=== PATIENT | female | born 1925 | race Caucasian/White ===

== ENCOUNTER → 2016-07-12 | Outpatient (CLI) | payer OTHER, BC | LOC: BHFA 10:30 | PROVIDERS: ATTEND Internal Medicine Cardiovascular Disease | DX: I25.10 Atherosclerotic heart disease of native coronary artery without angina pectoris (principal); I10 Essential (primary) hypertension; G45.9 Transient cerebral ischemic attack, unspecified; E78.5 Hyperlipidemia, unspecified; Z95.5 Presence of coronary angioplasty implant and graft ==

== ENCOUNTER → 2016-07-25 | Outpatient (CLI) | payer OTHER, BC | LOC: BHFA 09:15 | PROVIDERS: ATTEND Internal Medicine | DX: G45.9 Transient cerebral ischemic attack, unspecified (principal); I10 Essential (primary) hypertension ==

== ENCOUNTER 2016-08-25 08:14 | Day surgery (SDC) | payer OTHER, BC ==
[2016-08-25] MEDS ORDERED: LIDOCAINE 1% 30 ML SDV SC ONE (09:00)
--- NOTE | 2016-08-25 11:15 | CPIP ---
[f rep st] INVASIVE CARDIAC PROCEDURE DATE OF PROCEDURE: 08/25/2016 INDICATIONS: The patient is 89 years old. She has a history of cryptogenic stroke. Previous monit oring has failed to indicate any arrhythmia. She is referred for evaluation of possible atrial fibr illation. PROCEDURE: Implantation of Medtronic LINQ. TECHNIQUE: Following informed consent, in the fasting state the patient was brought to the CVC. Th e left chest was prepped and draped in usual sterile fashion. The 4th intercostal space was identif ied. Lidocaine was infiltrated. A less than 1 cm incision was then made. The Medtronic LINQ was t hen "injected" underneath the skin. Electrocautery was used for hemostasis, as there was a small liu perficial arterial bleed. The wound was then closed with 2 yesenia and dressed with 4 x 4 gauze and Tegaderm. COMPLICATIONS: None. DISPOSITION: The patient will be discharged home today. /[id number]/MODL
== END 2016-08-25 11:44 | disposition home or self-care (01) ==
LOC: FCATH 08:14
PROVIDERS: ATTEND Internal Medicine Cardiovascular Disease
PROC: 0JH602Z Insertion of Monitoring Device into Chest Subcutaneous Tissue and Fascia, Open Approach (ICD-10-PCS; principal; 2016-08-25)
DX: I48.91 Unspecified atrial fibrillation (principal); I10 Essential (primary) hypertension; E78.5 Hyperlipidemia, unspecified; I73.9 Peripheral vascular disease, unspecified; I25.2 Old myocardial infarction; Z86.73 Personal history of transient ischemic attack (TIA), and cerebral infarction without residual deficits; Z85.828 Personal history of other malignant neoplasm of skin; Z88.0 Allergy status to penicillin; Z88.2 Allergy status to sulfonamides
CPT/HCPCS: C1764

== ENCOUNTER 2016-09-29 16:07 | Inpatient (IN) | payer OTHER, BC ==
--- NOTE | 2016-09-29 16:19 | EDPHY ---
H & P Stated Complaint: Referred by Dr. Monge's office for dehyrdation and r/o lung infection Time Seen by Provider: 09/29/16 16:18 - Personal History Current Tetanus Diphtheria and Acellular Pertussis (TDAP): Yes Tetanus Vaccine Date: Within 10 years. - Social History Smoking Status: Former smoker Constitutional: Initial Vital Signs Temperature (C) 36.6 C 09/29/16 16:08 Heart Rate 68 09/29/16 16:08 Respiratory Rate 14 09/29/16 16:08 Blood Pressure 128/60 H 09/29/16 16:08 O2 Sat (%) 95 09/29/16 16:08 O2 Delivery Mode Room Air O2 (L/minute) 2 Allergies/Adverse Reactions: ciprofloxacin [From Cipro] Allergy (Unknown, Verified 03/17/13 12:41) ciprofloxacin HCl [From Cipro] Allergy (Unknown, Verified 03/17/13 12:41) Penicillins Allergy (Unknown, Verified 03/17/13 12:41) Sulfa (Sulfonamide Antibiotics) Allergy (Unknown, Verified 03/17/13 17:07) Home Medications: Medication Instructions Recorded Aspirin 81mg (OTC) 81 mg PO DAILY 05/01/13 Citalopram [celeXA 20 MG (RX)] 10 mg PO DAILY 05/01/13 LORazepam [Ativan 0.5 mg (RX)] 0.5 mg PO HS 05/01/13 Levothyroxine [Synthroid 88 mcg 75 mcg PO DAILY 05/01/13 (RX)] Metoprolol Tartrate [Lopressor 25 25 mg PO BID 05/01/13 mg (RX)] Multivitamins [Multivitamin (OTC)] 1 tab PO BID 05/01/13 Ubidecarenone [Coenzyme Q10] 100 mg PO BID 05/01/13 Advil 400 mg PO BID 08/25/16 Glucosamine Chondroitin Cap 1 PO DAILY 08/25/16 Prilosec 20 mg 20 mg PO DAILY 08/25/16 Rosuvastatin Calcium [Crestor 40mg 40 mg PO DAILY 08/25/16 (*)] Vitamin D3 1,000 units PO DAILY 08/25/16 Medical Decision Making - Diagnostics Imaging: Imaging Impressions Chest X-Ray 09/29/16 16:20 Impression: Right lower lobe infiltrate suspicious for pneumonia.. ED Course/Re-evaluation: CHIEF COMPLAINT: Cough, weakness HISTORY OF PRESENT ILLNESS: The patient is an anticoagulated 89 y/o female, with a significant cardiac history, arriving with her family at the referral of her PCP complaining of worsening cough and weakness over the last week. She had a chest x-ray on Sunday, 3 days ago, that showed pneumonia and she was started on an antibiotics. Since then, she has not improved. Her daughter states she's also had two falls in the last week, once on each side and has complained of right and left hip. She has intermittent "shooting" pain in her right hip. She additionally has right rib pain when coughing. REVIEW OF SYSTEMS: A 10 point review of systems was performed and is negative with the exception of the elements mentioned in the history of present illness. PHYSICAL EXAM: HR, BP, O2 Sat, RR. Temp noted General Appearance: Alert, well hydrated, appropriate, and weak-appearing. Head: Atraumatic without scalp tenderness or obvious injury Eyes: Pupils equal, round, reactive to light and accommodation, EOMI, no trauma , no injection. Nose: Atraumatic, no rhinorrhea, clear. Neck: Supple, nontender, no lymphadenopathy. Respiratory: No retractions, no distress, no wheezes, and no accessory muscle use. Lungs have rhonchi on the right. Cardiovascular: Regular rate and rhythm, no murmurs, rubs, or gallops. Good capillary refill all extremities. Gastrointestinal: Abdomen is soft, nontender, non-distended, no masses, no rebound, no guarding, no peritoneal signs. Musculoskeletal: Normal active ROM of all extremities, atraumatic. Neurological: Alert, appropriate, and interactive. Neuro exam nonfocal. Skin: No rashes, good turgor, no nodules on palpation. Past medical history: CAD, MIs, hypertension, dyslipidemia, falls, skin cancer, CVA, GERD, IBS Past surgical history: multiple cardiac stents, total right hip arthroplasty, hysterectomy, right wrist repair, mastectomy, adenoidectomy, cataract surgery Family history: Noncontributory Social history: Family at bedside. Former tobacco use. Leacher: Dr. Blair Prior medical records reviewed including 05/01/13 for cardiac catheterization. DIAGNOSTICS/PROCEDURES/CRITICAL CARE TIME: Chest x-ray, Pelvis CT. I viewed the images myself on the PACS system. DIFFERENTIAL DIAGNOSIS: The differential diagnosis for the patient's cough and weakness included but was not limited to pneumonia, urinary tract infection , viral syndrome, meningitis, and sepsis. MEDICAL DECISION MAKING: This is a 89 y/o female who presents with a 1-week history of worsening cough and weakness. She has a significant medical history including CAD, hypertension , MIs, and CVA. She has rhonchi on lung exam and is generally weak. She additionally complains of intermittent right hip pain with movement. She is afebrile and her vitals are WNL. A chest x-ray 3 days ago was positive for pneumonia and she has been on doxycycline for a few days without improvement. Plan for IV, sepsis labs, UA, chest x-ray, pelvis CT, and IVantibiotic treatment. 750mg IV Levaquin administered. Hyponatremic at 124, no WBC, normal lactate. Repeat chest x-ray shows right lower lobe pneumonia. She has not improved on PO antibiotics as an outpatient and has had two falls due to weakness; she will require admission. 1730: Spoke with hospitalist. Dr. Marcus accepts admission. - Data Points Laboratory Results: Laboratory Results 09/29/16 16:30 09/29/16 16:30 09/29/16 09/29/16 09/29/16 16:30 16:30 16:30 WBC 7.69 10^3/uL 10^3/uL (3.80-9.50) RBC 4.45 10^6/uL 10^6/uL (4.18-5.33) Hgb 13.8 g/dL g/dL (12.6-16.3) Hct 38.4 % % (38.0-47.0) MCV 86.3 fL fL (81.5-99.8) MCH 31.0 pg pg (27.9-34.1) MCHC 35.9 g/dL g/dL (32.4-36.7) RDW 12.6 % % (11.5-15.2) Plt Count 271 10^3/uL 10^3/uL (150-400) MPV 8.7 fL fL (8.7-11.7) Neut % (Auto) 75.2 % H % (39.3-74.2) Lymph % (Auto) 11.2 % L % (15.0-45.0) Garza % (Auto) 11.4 % % (4.5-13.0) Eos % (Auto) 0.5 % L % (0.6-7.6) Baso % (Auto) 0.5 % % (0.3-1.7) Nucleat RBC Rel Count 0.0 % % (0.0-0.2) Absolute Neuts (auto) 5.78 10^3/uL 10^3/uL (1.70-6.50) Absolute Lymphs (auto) 0.86 10^3/uL L 10^3/uL (1.00-3.00) Absolute Monos (auto) 0.88 10^3/uL H 10^3/uL (0.30-0.80) Absolute Eos (auto) 0.04 10^3/uL 10^3/uL (0.03-0.40) Absolute Basos (auto) 0.04 10^3/uL 10^3/uL (0.02-0.10) Absolute Nucleated RBC 0.00 10^3/uL 10^3/uL (0-0.01) Immature Gran % 1.2 % H % (0.0-1.1) Immature Gran # 0.09 10^3/uL 10^3/uL (0.00-0.10) PT 14.8 SEC SEC (12.0-15.0) INR 1.16 (0.83-1.16) APTT 28.6 SEC SEC (23.0-38.0) VBG Lactic Acid Sodium 124 mEq/L L mEq/L (134-144) Potassium 3.0 mEq/L L mEq/L (3.5-5.2) Chloride 88 mEq/L L mEq/L (97-110) Carbon Dioxide 26 mEq/l mEq/l (22-31) Anion Gap 10 mEq/L mEq/L (8-16) BUN 20 mg/dL mg/dL (7-23) Creatinine 1.0 mg/dL mg/dL (0.6-1.0) Estimated GFR 52 Glucose 132 mg/dL H mg/dL (70-100) Calcium 8.8 mg/dL mg/dL (8.5-10.4) Total Bilirubin 1.3 mg/dL mg/dL (0.1-1.4) 09/29/16 16:30 WBC RBC Hgb Hct MCV MCH MCHC RDW Plt Count MPV Neut % (Auto) Lymph % (Auto) Garza % (Auto) Eos % (Auto) Baso % (Auto) Nucleat RBC Rel Count Absolute Neuts (auto) Absolute Lymphs (auto) Absolute Monos (auto) Absolute Eos (auto) Absolute Basos (auto) Absolute Nucleated RBC Immature Gran % Immature Gran # PT INR APTT VBG Lactic Acid 1.4 mmol/L mmol/L (0.7-2.1) Sodium Potassium Chloride Carbon Dioxide Anion Gap BUN Creatinine Estimated GFR Glucose Calcium Total Bilirubin Departure - Departure Disposition: [facility] Inpatient Acute Clinical Impression: Weakness, Hyponatremia Pneumonia Qualifiers: Pneumonia type: due to unspecified organism Laterality: right Lung location: lower lobe of lung Qualified Code(s): J18.1 - Lobar pneumonia, unspecified organism Condition: Fair Report Scribed for: Shawn Alicea Report Scribed by: Amy Donohue Date of Report: 09/29/16 Time of Report: 16:55
[2016-09-29 16:53] LABS: % IMMATURE GRANULYOCYTES 1.2 % (0.0-1.1); ABSOLUTE IMMATURE GRANULOCYTES 0.09 10^3/uL (0.00-0.10); ADD DIFF? NO; ADD MORPH? NO; ADD SCAN? NO; ATYPICAL LYMPHOCYTE FLAG 30 (0-99); FRAGMENT RBC FLAG 0 (0-99); HEMATOCRIT 38.4 % (38.0-47.0); HEMOGLOBIN 13.8 g/dL (12.6-16.3); LEFT SHIFT FLG 10 (0-99); LIPEMIA HEMOLYSIS FLAG 90 (0-99); MEAN CELL HEMOGLOBIN CONCENTR. 35.9 g/dL (32.4-36.7); MEAN CELL VOLUME 86.3 fL (81.5-99.8); MEAN PLATELET VOLUME 8.7 fL (8.7-11.7); PLATELET CLUMPS FLAG 10 (0-99); PLATELET COUNT 271 10^3/uL (150-400); RED BLOOD CELL COUNT 4.45 10^6/uL (4.18-5.33); RED CELL DISTRIBUTION WIDTH 12.6 % (11.5-15.2)
[2016-09-29 17:06] LABS: ANION GAP 10 mEq/L (8-16); BILIRUBIN,TOTAL 1.3 mg/dL (0.1-1.4); CALCIUM 8.8 mg/dL (8.5-10.4); CARBON DIOXIDE 26 mEq/l (22-31); CHLORIDE 88 mEq/L (97-110); GLOMERULAR FILTRATION RATE 52; GLUCOSE 132 mg/dL (70-100); SODIUM 124 mEq/L (134-144)
[2016-09-29 17:21] LABS: INR 1.16 (0.83-1.16); PROTIME(PATIENT) 14.8 SEC (12.0-15.0)
[2016-09-29 17:22] LABS: APTT 28.6 SEC (23.0-38.0)
[2016-09-29 18:25] LABS: COLOR PALE YELLOW; LEUKOCYTE ESTERASE,URINE NEGATIVE (NEGATIVE); NITRITE,URINE NEGATIVE (NEGATIVE)
[2016-09-29] MEDS ORDERED: ONDANSETRON DISINTEGRATING 4 MG TAB PO PRN ×2 (19:18→19:26)
[2016-09-29] MEDS ORDERED: oxyCODONE IR 5 MG TAB PO PRN (19:18)
[2016-09-29] MEDS ORDERED: ACETAMINOPHEN 325 MG TAB PO PRN (19:18)
[2016-09-29] MEDS ORDERED: ALBUTEROL 3 ML DEYVIAL IH PRN (19:18)
[2016-09-29] MEDS ORDERED: ONDANSETRON 4 MG/2 ML VIAL IVP PRN (19:18)
[2016-09-29] MEDS ORDERED: NS 1,000 ML IV SCH (19:30)
[2016-09-29] MEDS: LORazepam 0.5 MG TAB PO SCH (20:32)
[2016-09-29] MEDS: METOPROLOL TARTRATE 25 MG TAB PO SCH (20:33)
[2016-09-29] MEDS: IBUPROFEN 200 MG TAB PO SCH (20:36)
[2016-09-29] MEDS: IPRATROPIUM/ALBUTEROL 3 ML DEYVIAL IH SCH (21:43)
[2016-09-29] MEDS: AZITHROMYCIN IV 500 MG in D5W 250 ML IV SCH (21:44)
--- NOTE | 2016-09-29 22:59 | GHP ---
[f rep st] HISTORY AND PHYSICAL DATE OF ADMISSION: 09/29/2016 CHIEF COMPLAINT: Weakness and "feeling awful." HISTORY OF PRESENT ILLNESS: This is an 89-year-old female with past medical history of coronary art abel disease and TIAs who presents with complaints of feeling very weak and sick for several days. T he patient was recently diagnosed with pneumonia about 2 days ago and started on oral doxycycline. She notes that despite that she has continued to worsen, just feeling very weak, hardly able even to walk. She notes she has a very poor appetite and has not been eating much. She does not believe s he has had fevers or chills. She does have a cough that has been mostly dry. She has had a couple falls at home recently and has had significant bilateral back pain since her last fall. PAST MEDICAL HISTORY: 1. Coronary artery disease, status post [facility] in the past, with cardiac stents. 2. TIA. 3. Hyperlipidemia. 4. Hypothyroidism. 5. History of melanoma. 6. Hypertension. 7. History of CVA. 8. GERD. 9. IBS. PAST SURGICAL HISTORY: 1. Hysterectomy. 2. Total hip. 3. Cardiac stents. 4. Mastectomy. 5. Adenoidectomy. 6. Cataract surgery. FAMILY HISTORY: Parents are . SOCIAL HISTORY: The patient currently lives at [facility]. She drinks occasi onally. She is a nonsmoker. She has children who live near by. REVIEW OF SYSTEMS: 10-point review of systems was obtained, negative except as per HPI. MEDICATIONS: At home include: 1. Zofran. 2. Crestor. 3. Aspirin. 4. Ibuprofen. 5. Citalopram. 6. Glucosamine and chondroitin. 7. Doxycycline. 8. Digoxin. 9. Omeprazole. 10. Multivitamin. 11. Cholecalciferol. 12. Polyethylene glycol. 13. Metoprolol. 14. Ativan. 15. Synthroid. ALLERGIES: Include ciprofloxacin and penicillin. PHYSICAL EXAMINATION: VITAL SIGNS: BP 138/48, heart rate 65, respiratory rate 16, O2 sats 96% on r oom air. Temperature is 37. GENERAL APPEARANCE: This is an elderly, female. She is yovani ke and alert. She is in no acute distress. EYES: Anicteric. HENT: Oropharynx clear. CARDIOVASC ULAR: Regular rate and rhythm. No MRG. PULMONARY: Right basilar crackles. Normal work of breathing. ABDOMEN: Soft, nontender, nondistend ed. EXTREMITIES: No clubbing, cyanosis, or edema. SKIN: Warm, dry. Well perfused. NEURO/PSYCH: Oriented, appropriate, pleasant. CLINICAL DATA: Labs reviewed. Significant for white blood cell count of 7.6, hematocrit 38.4, plat elets of 271. Sodium is 124, creatinine 1.0, glucose of 132. Urinalysis shows 2+ blood, 3-5 red blo od cells, otherwise unremarkable. Chest x-ray reviewed and interpreted independently by myself shows right lower lobe infiltrate. Pelvic CT shows mildly displaced sacral trauma without fracture. ASSESSMENT/PLAN: This is an 89-year-old female with past history of coronary artery disease present ing with right lower lobe pneumonia that is failing to improve with outpatient therapy. 1. Right lower lobe pneumonia. She has been on doxycycline for 2 days prior to admission without s ignificant improvement. She does have persistent evidence of pneumonia on chest x-ray. She has bee n started on ceftriaxone and azithromycin in-house. She is nonseptic appearing. She is not hypoxic . 2. Hyponatremia. The patient does have a history of syndrome of inappropriate antidiuretic hormone but suspect this is more likely related to hypovolemic hyponatremia in the setting of poor p.o. inta ke for several days prior to admission. She has been given IV fluids and we will recheck a BMP. Wi ll also check urine sodium and osmoles. 3. Back pain, status post 2 falls at home. She does have a pelvic CT showing a displaced sacrum wi th subluxation of S5 compared to S4 without any acute fracture. She also has disk disease at L5 thr ough S1. She has been able to ambulate despite her pain. We will have PT/OT evaluate and work up f urther as indicated. 4. Coronary artery disease, without any evidence of acute coronary syndrome at this point. We will continue to monitor. 5. Other chronic medical problems including history of cerebrovascular accident, hyperlipidemia, hy pothyroidism. Will continue outpatient management. 6. Disposition. Inpatient status. Patient has multiple active comorbid conditions requiring inpat ient stay and greater than 48 hours stay here in the hospital. 7. Code status is do not resuscitate. 8. The patient is new to my care. Old records reviewed and summarized as per HPI and past medical history. Care plan reviewed with ER physician, including plans for treatment of pneumonia. /[id number]/MODL
[2016-09-29 23:57] LABS: ANION GAP 9 mEq/L (8-16); CALCIUM 8.4 mg/dL (8.5-10.4); CARBON DIOXIDE 24 mEq/l (22-31); CHLORIDE 93 mEq/L (97-110); CREATININE 0.9 mg/dL (0.6-1.0); GLOMERULAR FILTRATION RATE 59; GLUCOSE 195 mg/dL (70-100); SODIUM 126 mEq/L (134-144)
[2016-09-29 23:59] LABS: POTASSIUM 2.7 mEq/L (3.5-5.2)
[2016-09-30] MEDS ORDERED: POTASSIUM CL 20 MEQ/15 ML UDCUP PO ONE ×2 (00:10→00:18)
[2016-09-30] MEDS ORDERED: PROTOCOL MAGNESIUM 1 DOSE IV PRN (00:15)
[2016-09-30] MEDS ORDERED: PROTOCOL POTASSIUM 1 DOSE MISC PRN (00:15)
[2016-09-30] MEDS ORDERED: POTASSIUM Cl (KCl) 100 ML IV SCH (00:30)
--- NOTE | 2016-09-30 01:03 | CPEKG ---
Heart Rate: 67 RR Interval: 896 P-R Interval: 176 QRSD Interval: 88 QT Interval: 440 QTC Interval: 465 P [place]: 54 QRS [place]: 24 T Wave [place]: 34 EKG Severity - NORMAL ECG - EKG Impression: SINUS RHYTHM Electronically Signed By: Marco Nagy 30-Sep-2016 16:59:18
[2016-09-30] MEDS: IPRATROPIUM/ALBUTEROL 3 ML DEYVIAL IH SCH ×4 (05:24→21:12)
[2016-09-30 05:46] LABS: % IMMATURE GRANULYOCYTES 1.3 % (0.0-1.1); ABSOLUTE IMMATURE GRANULOCYTES 0.08 10^3/uL (0.00-0.10); ADD DIFF? NO; ADD MORPH? NO; ADD SCAN? NO; ATYPICAL LYMPHOCYTE FLAG 0 (0-99); FRAGMENT RBC FLAG 0 (0-99); HEMATOCRIT 35.9 % (38.0-47.0); HEMOGLOBIN 13.1 g/dL (12.6-16.3); LEFT SHIFT FLG 10 (0-99); LIPEMIA HEMOLYSIS FLAG 90 (0-99); MEAN CELL HEMOGLOBIN 31.9 pg (27.9-34.1); MEAN CELL HEMOGLOBIN CONCENTR. 36.5 g/dL (32.4-36.7); MEAN CELL VOLUME 87.3 fL (81.5-99.8); MEAN PLATELET VOLUME 8.7 fL (8.7-11.7); PLATELET CLUMPS FLAG 0 (0-99); PLATELET COUNT 241 10^3/uL (150-400); RED BLOOD CELL COUNT 4.11 10^6/uL (4.18-5.33); RED CELL DISTRIBUTION WIDTH 12.6 % (11.5-15.2)
[2016-09-30] MEDS: LEVOTHYROXINE 75 MCG TAB PO SCH (05:58)
[2016-09-30 06:01] LABS: ANION GAP 7 mEq/L (8-16); CALCIUM 8.6 mg/dL (8.5-10.4); CARBON DIOXIDE 26 mEq/l (22-31); CHLORIDE 98 mEq/L (97-110); CREATININE 0.9 mg/dL (0.6-1.0); GLOMERULAR FILTRATION RATE 59; GLUCOSE 100 mg/dL (70-100); MAGNESIUM 2.2 mg/dL (1.6-2.3); SODIUM 131 mEq/L (134-144)
[2016-09-30] MEDS: AZITHROMYCIN IV 500 MG in D5W 250 ML IV SCH (10:02)
[2016-09-30] MEDS: IBUPROFEN 200 MG TAB PO SCH ×2 (10:03→18:31)
[2016-09-30] MEDS: ASPIRIN EC 81 MG TAB PO SCH (10:03)
[2016-09-30] MEDS: GLUCOSAMINE/CHONDROITIN CAP PO SCH (10:03)
[2016-09-30] MEDS: PANTOPRAZOLE SODIUM 40 MG TAB PO SCH (10:03)
[2016-09-30] MEDS: DIGOXIN 125 MCG TAB PO SCH (10:03)
[2016-09-30] MEDS: CHOLECALCIFEROL VIT D3 1,000 UNITS TAB PO SCH (10:03)
[2016-09-30] MEDS: ROSUVASTATIN CALCIUM 40 MG TAB PO SCH (10:03)
[2016-09-30] MEDS: ENOXAPARIN 30 MG/0.3 ML SYR SC SCH (10:04)
[2016-09-30] MEDS: MULTIVITAMINS 1 EACH TAB PO SCH (10:04)
[2016-09-30] MEDS: METOPROLOL TARTRATE 25 MG TAB PO SCH ×2 (10:04→18:32)
[2016-09-30] MEDS: CITALOPRAM 20 MG TAB PO SCH (10:04)
[2016-09-30] MEDS: POLYETHYLENE GLYCOL 3350 17 GM PKT PO SCH (10:11)
--- NOTE | 2016-09-30 15:56 | HOSPPROG ---
Hospitalist Progress Note Assessment/Plan: 89-year-old female with known history of coronary artery disease and prior TIAs admitted with a right lower lobe pneumonia. Patient is new to me today. -RLL pneumonia currently on Rocephin and azithromycin and improving. She is also on bronchodilator therapy. She remains quite weak during my exam but that could be expected given that she has been sick for at least 3-5 days. -hyponatremia secondary to free water ingestion. Possible SIADH syndrome though more likely just free water. Will watch her sodium. Her diet will be liberal. -back pain. Findings of the CT scanner well noted. Will treat pain as needed PT will be contacted -code status: DNR -DVT: Of Lovenox -disposition: Patient should be inpatient status due to numerous medical problems and severity of the pneumonia. Subjective: Reports she feels weak and tired but slightly improved since admission. She was asleep at the time of my initial evaluation. Denied abdominal pain chest pain. She said her shortness of breath was improved. No hemoptysis Objective: Vital Signs Temp Pulse Resp BP Pulse Ox 36.5 C 66 14 104/52 L 97 09/30/16 04:00 09/30/16 09:43 09/30/16 09:43 09/30/16 04:00 09/30/16 09:43 Laboratory Results 09/30/16 05:27 09/30/16 05:27 09/29/16 09/30/16 10/01/16 05:59 05:59 05:59 Intake Total 250 Output Total 800 Balance -550 PT 14.8 SEC (12.0-15.0) 09/29/16 16:30 INR 1.16 (0.83-1.16) 09/29/16 16:30 - Time Spent With Patient Time Spent with Patient: greater than 35 minutes Time Spent with Patient: Greater than 35 minutes spent on this patients care, greater than 50% of time spent counseling, educating, and coordinating care regarding the above mentioned plan. - Pending Discharge Pending Discharge Within 24 Hours: No Pending Discharge Within 48 Hours: No - Physical Exam Constitutional: no apparent distress, chronically ill appearing Eyes: PERRL Ears, Nose, Mouth, Throat: moist mucous membranes, hard of hearing Cardiovascular: regular rate and rhythym, no murmur, rub, or gallop Respiratory: no respiratory distress, clear to auscultation, reduced air movement Gastrointestinal: normoactive bowel sounds, soft, non-tender abdomen, no palpable masses Musculoskeletal: generalized weakness Neurologic: AAOx3, CN II-XII Intact Psychiatric: interacting appropriately ICD10 Worksheet Patient Problems: Problems Problem Status Onset Fracture of neck of femur Active NSTEMI (non-ST elevated myocardial infarction) Acute Pneumonia Acute Weakness Acute Hyponatremia Acute
[2016-09-30 18:08] LABS: POTASSIUM 3.6 mEq/L (3.5-5.2)
[2016-09-30] MEDS: LORazepam 0.5 MG TAB PO SCH (21:23)
[2016-09-30] MEDS ORDERED: POTASSIUM CL 20 MEQ TAB PO ONE (21:25)
[2016-10-01] MEDS: LEVOTHYROXINE 75 MCG TAB PO SCH (05:05)
[2016-10-01] MEDS: IPRATROPIUM/ALBUTEROL 3 ML DEYVIAL IH SCH ×4 (05:23→22:11)
[2016-10-01 05:47] LABS: ALANINE AMINOTRANSFERASE 43 IU/L (9-52); ALBUMIN 2.8 g/dL (3.5-5.0); ALKALINE PHOSPHATASE 61 IU/L (38-126); ANION GAP 7 mEq/L (8-16); ASPARTATE AMINOTRANSFERASE 37 IU/L (14-46); BILIRUBIN,TOTAL 0.9 mg/dL (0.1-1.4); CALCIUM 8.6 mg/dL (8.5-10.4); CARBON DIOXIDE 25 mEq/l (22-31); CHLORIDE 99 mEq/L (97-110); CREATININE 0.9 mg/dL (0.6-1.0); GLOMERULAR FILTRATION RATE 59; GLUCOSE 107 mg/dL (70-100); MAGNESIUM 2.1 mg/dL (1.6-2.3); POTASSIUM 3.8 mEq/L (3.5-5.2); SODIUM 131 mEq/L (134-144); TOTAL PROTEIN 5.5 g/dL (6.3-8.2)
[2016-10-01] MEDS: AZITHROMYCIN IV 500 MG in D5W 250 ML IV SCH (09:01)
[2016-10-01] MEDS: POLYETHYLENE GLYCOL 3350 17 GM PKT PO SCH (09:01)
[2016-10-01] MEDS: ENOXAPARIN 30 MG/0.3 ML SYR SC SCH (09:01)
[2016-10-01] MEDS: METOPROLOL TARTRATE 25 MG TAB PO SCH ×2 (09:02→19:56)
[2016-10-01] MEDS: CHOLECALCIFEROL VIT D3 1,000 UNITS TAB PO SCH (09:02)
[2016-10-01] MEDS: CITALOPRAM 20 MG TAB PO SCH (09:02)
[2016-10-01] MEDS: ASPIRIN EC 81 MG TAB PO SCH (09:02)
[2016-10-01] MEDS: IBUPROFEN 200 MG TAB PO SCH ×2 (09:02→19:40)
[2016-10-01] MEDS: DIGOXIN 125 MCG TAB PO SCH (09:02)
[2016-10-01] MEDS: ROSUVASTATIN CALCIUM 40 MG TAB PO SCH (09:02)
[2016-10-01] MEDS: PANTOPRAZOLE SODIUM 40 MG TAB PO SCH (09:02)
[2016-10-01] MEDS: GLUCOSAMINE/CHONDROITIN CAP PO SCH (09:02)
[2016-10-01] MEDS: MULTIVITAMINS 1 EACH TAB PO SCH (09:03)
[2016-10-01] MEDS ORDERED: POTASSIUM CL 10 MEQ TAB PO ONE ×2 (09:29→21:16)
--- NOTE | 2016-10-01 09:32 | HOSPPROG ---
Hospitalist Progress Note Assessment/Plan: 89-year-old female with known history of coronary artery disease and prior TIAs admitted with a right lower lobe pneumonia. Today feeling slightly improved with better appetite. Moving her bowels without diarrhea -RLL pneumonia currently on Rocephin and azithromycin and improving. She is also on bronchodilator therapy. She remains quite weak during my exam but that could be expected given that she has been sick for at least 3-5 days. -hyponatremia secondary to free water ingestion. Possible SIADH syndrome though more likely just free water. Will watch her sodium. Her diet will be liberal. -back pain. Findings of the CT scanner well noted. Will treat pain as needed PT will be contacted -code status: DNR -DVT: Of Lovenox -disposition: Patient should be inpatient status due to numerous medical problems and severity of the pneumonia. Objective: Vital Signs Temp Pulse Resp BP Pulse Ox 36.6 C 73 14 119/57 L 96 10/01/16 08:00 10/01/16 09:02 10/01/16 08:00 10/01/16 08:00 10/01/16 08:00 Laboratory Results 09/30/16 05:27 10/01/16 05:12 09/30/16 10/01/16 10/02/16 05:59 05:59 05:59 Intake Total 250 Output Total 800 Balance -550 PT 14.8 SEC (12.0-15.0) 09/29/16 16:30 INR 1.16 (0.83-1.16) 09/29/16 16:30 - Time Spent With Patient Time Spent with Patient: greater than 35 minutes Time Spent with Patient: Greater than 35 minutes spent on this patients care, greater than 50% of time spent counseling, educating, and coordinating care regarding the above mentioned plan. - Pending Discharge Pending Discharge Within 24 Hours: No Pending Discharge Within 48 Hours: No - Physical Exam Constitutional: no apparent distress, chronically ill appearing, other (appear very tired and weak) Eyes: PERRL Ears, Nose, Mouth, Throat: moist mucous membranes Cardiovascular: regular rate and rhythym, no murmur, rub, or gallop Respiratory: expiratory wheeze, bronchial breath sounds, rhonchi Gastrointestinal: normoactive bowel sounds, soft, non-tender abdomen Genitourinary: no bladder fullness Musculoskeletal: generalized weakness Neurologic: AAOx3, CN II-XII Intact Psychiatric: interacting appropriately ICD10 Worksheet Patient Problems: Problems Problem Status Onset Hyponatremia Acute Pneumonia Acute Weakness Acute Fracture of neck of femur Active NSTEMI (non-ST elevated myocardial infarction) Acute
--- NOTE | 2016-10-01 16:22 | HOSPPROG ---
Hospitalist Progress Note Assessment/Plan: 89-year-old female with known history of coronary artery disease and prior TIAs admitted with a right lower lobe pneumonia. Today feeling slightly improved with better appetite. Moving her bowels without diarrhea -RLL pneumonia currently on Rocephin and azithromycin and improving. She is also on bronchodilator therapy. She remains quite weak during my exam but that could be expected given that she has been sick for at least 3-5 days. -hyponatremia secondary to free water ingestion. Possible SIADH syndrome though more likely just free water. Will watch her sodium. Her diet will be liberal. -back pain. Findings of the CT scanner well noted. Will treat pain as needed PT will be contacted -code status: DNR -DVT: Of Lovenox -disposition: Patient should be inpatient status due to numerous medical problems and severity of the pneumonia. Subjective: Reports she is feeling slightly improved. She does have a cough but it is not productive. Denies nausea vomiting. Objective: Vital Signs Temp Pulse Resp BP Pulse Ox 36.7 C 60 16 114/62 94 10/01/16 12:00 10/01/16 12:00 10/01/16 12:00 10/01/16 12:00 10/01/16 12:00 Laboratory Results 09/30/16 05:27 10/01/16 05:12 09/30/16 10/01/16 10/02/16 05:59 05:59 05:59 Intake Total 250 Output Total 800 Balance -550 PT 14.8 SEC (12.0-15.0) 09/29/16 16:30 INR 1.16 (0.83-1.16) 09/29/16 16:30 - Time Spent With Patient Time Spent with Patient: greater than 35 minutes Time Spent with Patient: Greater than 35 minutes spent on this patients care, greater than 50% of time spent counseling, educating, and coordinating care regarding the above mentioned plan. - Pending Discharge Pending Discharge Within 24 Hours: No Pending Discharge Within 48 Hours: Yes Pending Discharge Date: 10/03/16 Pending Discharge Time: 11:00 - Physical Exam Constitutional: chronically ill appearing Eyes: PERRL Ears, Nose, Mouth, Throat: moist mucous membranes Cardiovascular: regular rate and rhythym, systolic murmur Respiratory: inspiratory crackles, bronchial breath sounds, rhonchi Gastrointestinal: normoactive bowel sounds, soft, non-tender abdomen Genitourinary: no bladder fullness Skin: warm Musculoskeletal: generalized weakness Neurologic: AAOx3, CN II-XII Intact ICD10 Worksheet Patient Problems: Problems Problem Status Onset Fracture of neck of femur Active NSTEMI (non-ST elevated myocardial infarction) Acute Pneumonia Acute Weakness Acute Hyponatremia Acute
[2016-10-01 19:21] LABS: POTASSIUM 3.8 mEq/L (3.5-5.2)
[2016-10-01] MEDS: LORazepam 0.5 MG TAB PO SCH (19:41)
[2016-10-02] MEDS: LEVOTHYROXINE 75 MCG TAB PO SCH (05:23)
[2016-10-02] MEDS: IPRATROPIUM/ALBUTEROL 3 ML DEYVIAL IH SCH ×4 (05:23→21:00)
[2016-10-02 05:53] LABS: ANION GAP 8 mEq/L (8-16); CALCIUM 8.8 mg/dL (8.5-10.4); CARBON DIOXIDE 26 mEq/l (22-31); CHLORIDE 96 mEq/L (97-110); GLOMERULAR FILTRATION RATE 52; GLUCOSE 103 mg/dL (70-100); MAGNESIUM 2.1 mg/dL (1.6-2.3); POTASSIUM 3.9 mEq/L (3.5-5.2); SODIUM 130 mEq/L (134-144)
[2016-10-02] MEDS: MULTIVITAMINS 1 EACH TAB PO SCH (09:44)
[2016-10-02] MEDS: ENOXAPARIN 30 MG/0.3 ML SYR SC SCH (09:44)
[2016-10-02] MEDS: METOPROLOL TARTRATE 25 MG TAB PO SCH ×2 (09:44→21:00)
[2016-10-02] MEDS: CHOLECALCIFEROL VIT D3 1,000 UNITS TAB PO SCH (09:44)
[2016-10-02] MEDS: CITALOPRAM 20 MG TAB PO SCH (09:44)
[2016-10-02] MEDS: GLUCOSAMINE/CHONDROITIN CAP PO SCH (09:44)
[2016-10-02] MEDS: PANTOPRAZOLE SODIUM 40 MG TAB PO SCH (09:45)
[2016-10-02] MEDS: DIGOXIN 125 MCG TAB PO SCH (09:45)
[2016-10-02] MEDS: ROSUVASTATIN CALCIUM 40 MG TAB PO SCH (09:45)
[2016-10-02] MEDS: IBUPROFEN 200 MG TAB PO SCH ×2 (09:45→21:00)
[2016-10-02] MEDS: ASPIRIN EC 81 MG TAB PO SCH (09:46)
[2016-10-02] MEDS: POLYETHYLENE GLYCOL 3350 17 GM PKT PO SCH (11:16)
[2016-10-02] MEDS: AZITHROMYCIN IV 500 MG in D5W 250 ML IV SCH (11:48)
[2016-10-02] MEDS ORDERED: POTASSIUM CL 10 MEQ TAB PO ONE (11:50)
--- NOTE | 2016-10-02 16:25 | HOSPPROG ---
Hospitalist Progress Note Assessment/Plan: 89-year-old female with known history of coronary artery disease and prior TIAs admitted with a right lower lobe pneumonia. Today feeling slightly improved with better appetite. Moving her bowels without diarrhea. Today, 10/02, the patient is slightly improved with increased energy. Per PT she is able to move and transfer slowly but requires assistance in all matters. -RLL pneumonia currently on Rocephin and azithromycin and improving. She is also on bronchodilator therapy. She remains quite weak during my exam but that could be expected given that she has been sick for at least 3-5 days. -hyponatremia secondary to free water ingestion. Possible SIADH syndrome though more likely just free water. Will watch her sodium. Her diet will be liberal. -back pain. Findings of the CT scanner well noted. Will treat pain as needed PT will be contacted -code status: DNR -DVT: Of Lovenox -disposition: Possible discharge on 10/03 to assisted living in her own residence. She has currently been at independent living. Subjective: Says she is feeling slightly improved now. She has little more energy and per PT notes he is able to transfer go to the bathroom and walked slowly with assistance in all matters. Objective: Vital Signs Temp Pulse Resp BP Pulse Ox 36.8 C 64 14 127/57 H 94 10/02/16 15:16 10/02/16 15:16 10/02/16 15:16 10/02/16 15:16 10/02/16 15:16 Laboratory Results 09/30/16 05:27 10/02/16 05:05 10/01/16 10/02/16 10/03/16 05:59 05:59 05:59 Intake Total 480 Output Total 400 Balance 80 PT 14.8 SEC (12.0-15.0) 09/29/16 16:30 INR 1.16 (0.83-1.16) 09/29/16 16:30 - Time Spent With Patient Time Spent with Patient: greater than 35 minutes Time Spent with Patient: Greater than 35 minutes spent on this patients care, greater than 50% of time spent counseling, educating, and coordinating care regarding the above mentioned plan. - Pending Discharge Pending Discharge Within 24 Hours: No Pending Discharge Within 48 Hours: Yes Pending Discharge Date: 10/04/16 Pending Discharge Time: 11:00 - Physical Exam Constitutional: no apparent distress, chronically ill appearing Eyes: PERRL Ears, Nose, Mouth, Throat: moist mucous membranes, hard of hearing Cardiovascular: regular rate and rhythym, no murmur, rub, or gallop Respiratory: no respiratory distress, no rales or rhonchi, other (Few rales were noted in the right lower lobe the seem to clear with coughing) Gastrointestinal: normoactive bowel sounds, soft, non-tender abdomen, no palpable masses Genitourinary: no bladder fullness Skin: warm Musculoskeletal: generalized weakness Neurologic: AAOx3, CN II-XII Intact ICD10 Worksheet Patient Problems: Problems Problem Status Onset Chronic Disease Mgmt/Transitional Care Acute Fracture of neck of femur Active NSTEMI (non-ST elevated myocardial infarction) Acute Pneumonia Acute Weakness Acute Hyponatremia Acute
[2016-10-02] MEDS: [UNRECOGNIZED DRUG - OTHER] PO SCH (17:27)
[2016-10-02] MEDS: LORazepam 0.5 MG TAB PO SCH (21:00)
[2016-10-02] MEDS ORDERED: MELATONIN 3 MG TAB PO SCH (21:00)
[2016-10-03] MEDS: LEVOTHYROXINE 75 MCG TAB PO SCH (05:22)
[2016-10-03] MEDS: IPRATROPIUM/ALBUTEROL 3 ML DEYVIAL IH SCH ×2 (06:02→12:09)
[2016-10-03 07:59] VITALS: TEMP 97.9
[2016-10-03] MEDS: ROSUVASTATIN CALCIUM 40 MG TAB PO SCH (08:48)
[2016-10-03] MEDS: PANTOPRAZOLE SODIUM 40 MG TAB PO SCH (08:48)
[2016-10-03] MEDS: GLUCOSAMINE/CHONDROITIN CAP PO SCH (08:48)
[2016-10-03] MEDS: CITALOPRAM 20 MG TAB PO SCH (08:49)
[2016-10-03] MEDS: MULTIVITAMINS 1 EACH TAB PO SCH (08:49)
[2016-10-03] MEDS: METOPROLOL TARTRATE 25 MG TAB PO SCH (08:49)
[2016-10-03] MEDS: ASPIRIN EC 81 MG TAB PO SCH (08:49)
[2016-10-03] MEDS: DIGOXIN 125 MCG TAB PO SCH (08:49)
[2016-10-03] MEDS: ENOXAPARIN 30 MG/0.3 ML SYR SC SCH (08:50)
[2016-10-03] MEDS: CHOLECALCIFEROL VIT D3 1,000 UNITS TAB PO SCH (08:50)
[2016-10-03] MEDS: IBUPROFEN 200 MG TAB PO SCH (08:50)
[2016-10-03] MEDS: [UNRECOGNIZED DRUG - OTHER] PO SCH (08:52)
[2016-10-03] MEDS: POLYETHYLENE GLYCOL 3350 17 GM PKT PO SCH (08:53)
[2016-10-03] MEDS: AZITHROMYCIN IV 500 MG in D5W 250 ML IV SCH (09:50)
[2016-10-03 12:08] VITALS: BP 103/61; PULSE 57; RESP 16; O2SAT 99
--- NOTE | 2016-10-03 13:18 | PDIAF ---
- Diagnosis Diagnosis: pneumonia Code Status: Do Not Resuscitate - Medication Management Discharge Medications: Medications to Continue on Transfer Aspirin EC [Aspirin EC 81 mg (*)] 81 mg PO DAILY 09/29/16 [Last Taken 09/28/16] Cholecalciferol Vit D3 [Vitamin D3 (*)] 1,000 units PO DAILY 09/29/16 [Last Taken Unknown] Citalopram Hydrobromide [celeXA 10 MG] 10 mg PO DAILY 09/29/16 [Last Taken 09/29] Digoxin [Lanoxin 125 mcg (RX)] 125 mcg PO DAILY 09/29/16 [Last Taken 09/29/16] Glucosam/Chondr/Collagn/Hyalur [Glucosamine & Chondroitin Cap] 1 each PO DAILY 09/29/16 [Last Taken Unknown] Herbals/Supplements -Info Only 1 ea PO DAILY 09/29/16 [Last Taken Unknown] Ibuprofen [Advil] 200 mg PO BIDMEAL 09/29/16 [Last Taken 09/29/16] LORazepam [Ativan (*)] 0.5 mg PO HS 09/29/16 [Last Taken 09/29/16] Levothyroxine [Synthroid 75 mcg (*)] 75 mcg PO DAILY06 09/29/16 [Last Taken ] Metoprolol Tartrate [Lopressor 25 mg (*)] 25 mg PO BID 09/29/16 [Last Taken ] Multivitamins [Multivitamin (*)] 1 each PO DAILY 09/29/16 [Last Taken Unknown] Omeprazole [Prilosec 20 mg] 20 mg PO DAILY 09/29/16 [Last Taken 09/29/16] Ondansetron Odt [Zofran Odt 4 mg (*)] 4 mg PO Q6 PRN 09/29/16 [Last Taken Unknown] Polyethylene Glycol 3350 [Miralax 17 gm (*)] 17 gm PO DAILY 09/29/16 [Last Taken Unknown] Rosuvastatin Calcium [Crestor 40mg (*)] 40 mg PO HS 09/29/16 [Last Taken ] Discharge Medications: Refer to the Discharge Home Medication list for PRN reason. - Orders Services needed: Home Care, Physical Therapy, Occupational Therapy Home Care Face to Face: I certify that this patient was under my care and that I had the required [id number] encounter meeting the encounter requirements on the discharge day. My findings support the fact that the patient is homebound as defined in CMS Chapter 7 Medicare Benefits Manual 30.1.1, The condition of the patient is such that there exists a normal inability to leave home and consequently, leaving home would require a considerable and taxing effort. Diet Recommendation: no restrictions on diet Diet Texture: Regular Texture Diet - Follow Up Care Current Providers and Referrals: Patient,NotPresent [Unknown] -
--- NOTE | 2016-10-03 15:58 | PDIAF ---
- Diagnosis Diagnosis: pneumonia Code Status: Do Not Resuscitate - Medication Management Discharge Medications: Medications to Continue on Transfer Aspirin EC [Aspirin EC 81 mg (*)] 81 mg PO DAILY 09/29/16 [Last Taken 09/28/16] Cholecalciferol Vit D3 [Vitamin D3 (*)] 1,000 units PO DAILY 09/29/16 [Last Taken Unknown] Citalopram Hydrobromide [celeXA 10 MG] 10 mg PO DAILY 09/29/16 [Last Taken 09/29] Digoxin [Lanoxin 125 mcg (RX)] 125 mcg PO DAILY 09/29/16 [Last Taken 09/29/16] Glucosam/Chondr/Collagn/Hyalur [Glucosamine & Chondroitin Cap] 1 each PO DAILY 09/29/16 [Last Taken Unknown] Herbals/Supplements -Info Only 1 ea PO DAILY 09/29/16 [Last Taken Unknown] Ibuprofen [Advil] 200 mg PO BIDMEAL 09/29/16 [Last Taken 09/29/16] LORazepam [Ativan (*)] 0.5 mg PO HS 09/29/16 [Last Taken 09/29/16] Levothyroxine [Synthroid 75 mcg (*)] 75 mcg PO DAILY06 09/29/16 [Last Taken ] Metoprolol Tartrate [Lopressor 25 mg (*)] 25 mg PO BID 09/29/16 [Last Taken ] Multivitamins [Multivitamin (*)] 1 each PO DAILY 09/29/16 [Last Taken Unknown] Omeprazole [Prilosec 20 mg] 20 mg PO DAILY 09/29/16 [Last Taken 09/29/16] Ondansetron Odt [Zofran Odt 4 mg (*)] 4 mg PO Q6 PRN 09/29/16 [Last Taken Unknown] Polyethylene Glycol 3350 [Miralax 17 gm (*)] 17 gm PO DAILY 09/29/16 [Last Taken Unknown] Rosuvastatin Calcium [Crestor 40mg (*)] 40 mg PO HS 09/29/16 [Last Taken ] Discharge Medications: Refer to the Discharge Home Medication list for PRN reason. - Orders Services needed: Home Care, Physical Therapy, Occupational Therapy Home Care Face to Face: I certify that this patient was under my care and that I had the required [id number] encounter meeting the encounter requirements on the discharge day. My findings support the fact that the patient is homebound as defined in CMS Chapter 7 Medicare Benefits Manual 30.1.1, The condition of the patient is such that there exists a normal inability to leave home and consequently, leaving home would require a considerable and taxing effort. Diet Recommendation: no restrictions on diet Diet Texture: Regular Texture Diet - Labs/Radiology BMP Date: 10/06/16 - Follow Up Care Current Providers and Referrals: Patient,NotPresent [Unknown] -
--- NOTE | 2016-10-03 16:15 | GDS ---
[f rep st] DISCHARGE SUMMARY DISCHARGE DIAGNOSES: 1. Community-acquired pneumonia. 2. Hyponatremia, likely multifactorial, possibly related to decreased solute intake. 3. Back pain. 4. Do not resuscitate status. CONSULTANTS: None. HOSPITAL COURSE AND STAY BY PROBLEM: 1. Community-acquired pneumonia: The patient was admitted to the hospital where she was treated wi 5 days of azithromycin and Rocephin which was preceded with 2 days of doxycycline. Throughout e patient's hospital stay, she has continued to feel weak and tired. On day of discharge, her oxyge n saturation is 99% on room air. She is afebrile. 2. Hyponatremia: The patient's sodium has remained low throughout her stay. She presented with a sodium of 124, that has since increased to 130. Her urine sodium is low which is consistent with po or solute intake. I suspect that her serum sodium will increase as her overall appetite improves. PHYSICAL EXAMINATION: VITAL SIGNS: On day of discharge, blood pressure 103/61, pulse 57, respirato ry rate 16, O2 saturation 99% on room air. Temperature afebrile. GENERAL: No acute distress. HEA RT: S1, S2. LUNGS: Clear. ABDOMEN: Soft. EXTREMITIES: No edema. PERTINENT LABS AND STUDIES DURING THIS HOSPITAL STAY: CT of the pelvis done 09/29/2016: Refer to sully thao for details. DISCHARGE MEDICATIONS: Please refer to discharge medication reconciliation for details. DISCHARGE INSTRUCTIONS: The patient will be discharged back to [facility] with home ca re where she will not be treated with further antibiotics. She should be encouraged to return to he r normal diet. She should have a repeat metabolic panel done in the next few days to ensure that he r sodium is normalizing. /[id number]/MODL
== END 2016-10-03 15:49 | DRG 194 ==
LOC: F3E 18:24
PROVIDERS: ADMIT Internal Medicine; ATTEND Internal Medicine
DX: J18.9 Pneumonia, unspecified organism (principal); E87.1 Hypo-osmolality and hyponatremia; R29.6 Repeated falls; I25.10 Atherosclerotic heart disease of native coronary artery without angina pectoris; I25.2 Old myocardial infarction; Z95.5 Presence of coronary angioplasty implant and graft; E03.9 Hypothyroidism, unspecified; E78.5 Hyperlipidemia, unspecified; I10 Essential (primary) hypertension; Z96.641 Presence of right artificial hip joint; Z86.73 Personal history of transient ischemic attack (TIA), and cerebral infarction without residual deficits; Z87.891 Personal history of nicotine dependence; Z79.01 Long term (current) use of anticoagulants; Z66 Do not resuscitate
CPT/HCPCS: 97110-GP; 97116-GP; 97162-GP; 97165-GO; 97530-GO; 97530-GP; 97535-GO; G8978-GP-CI; G8978-GP-CK; G8979-GP-CI; G8980-GP-CI; G8987-GO-CK; G8988-GO-CH; J0456; J0696; J1650